=== PATIENT | female | born 1975 | race Caucasian/White ===

== ENCOUNTER 2021-01-21 19:51 | Emergency (ER) | payer MEDICAID ==
[~2021-01-21] VITALS: Ht 160 cm; Wt 127.3 kg
[2021-01-21] MEDS ORDERED: METF-960 PO (20:23)
[2021-01-21] MEDS ORDERED: GLIP10TA9 PO (20:25)
[2021-01-21] MEDS ORDERED: ACETAMINOPHEN 500 MG TABLET PO ONE (20:30)
[2021-01-21 21:06] LABS: COVID AG,FIA SOURCE NASOPHARYNGEAL
[2021-01-21 23:00] VITALS: BP 116/59
== END 2021-01-21 23:51 | disposition home or self-care (01) ==
LOC: EMS 19:54
DX: U07.1 COVID-19 (principal); E11.9 Type 2 diabetes mellitus without complications; Z88.0 Allergy status to penicillin; Z79.84 Long term (current) use of oral hypoglycemic drugs; Z79.899 Other long term (current) drug therapy
CPT/HCPCS: 99283

== ENCOUNTER 2021-03-16 20:16 | Emergency (ER) | payer MEDICAID ==
[~2021-03-16] VITALS: Ht 162.6 cm; Wt 95.5 kg
[~2021-03-16 20:16] MED LIST: GLIP10TA9 PO; METF-1211 PO
[2021-03-16 20:36] LABS: GLUCOSE,POINT OF CARE 383 MG/DL (70-110)
[2021-03-16 22:05] VITALS: BP 124/64
== END 2021-03-16 22:21 | disposition home or self-care (01) ==
LOC: EMS 20:18
DX: L73.9 Follicular disorder, unspecified (principal); E11.9 Type 2 diabetes mellitus without complications; Z88.0 Allergy status to penicillin; Z79.84 Long term (current) use of oral hypoglycemic drugs; Z79.899 Other long term (current) drug therapy
CPT/HCPCS: 82962; 99283

== ENCOUNTER 2021-08-01 18:32 | Emergency (ER) | payer MEDICAID ==
[~2021-08-01] VITALS: Ht 157.5 cm; Wt 92.3 kg
[2021-08-01 18:37] VITALS: BP 120/96
[2021-08-01] MEDS ORDERED: ERYT3.5O8 OS (19:48)
== END 2021-08-01 20:10 | disposition home or self-care (01) ==
LOC: EMS 18:32
DX: H00.025 Hordeolum internum left lower eyelid (principal); E11.9 Type 2 diabetes mellitus without complications; Z90.49 Acquired absence of other specified parts of digestive tract; Z88.0 Allergy status to penicillin
CPT/HCPCS: 99283; Z7502

== ENCOUNTER 2021-09-30 17:59 | Emergency (ER) | payer MEDICAID ==
[~2021-09-30] VITALS: Ht 154.9 cm; Wt 100.0 kg
[~2021-09-30 17:59] MED LIST changes: +ERYT3.5O8 OS
[2021-09-30] MEDS ORDERED: SODIUM CHLORIDE 0.9% 1,000 ML IV ONE (19:30)
[2021-09-30] MEDS ORDERED: ACETAMINOPHEN 500 MG TABLET PO ONE (19:30)
[2021-09-30 20:05] LABS: ANION GAP 7 mmol/L (8-16); CALCIUM, TOTAL 8.7 mg/dL (8.8-10.5); CARBON DIOXIDE 27 mmol/L (22-29); CHLORIDE 97 mmol/L (98-107); CREATININE 0.79 mg/dL (0.60-1.30); POTASSIUM 3.7 mmol/L (3.5-5.1); SODIUM SERUM 131 mmol/L (136-145); UREA NITROGEN, BLOOD 14 mg/dL (7-18)
[2021-09-30 20:07] LABS: GLOMERULAR FILTR. RATE CALC > 60 mL/min (>60); GLUCOSE,RANDOM 416 mg/dL (70-110)
[2021-09-30] MEDS ORDERED: INSULIN REGULAR, HUMAN 100 UNITS/ML IVP ONE (20:15)
[2021-09-30] MEDS ORDERED: IBUP-2070 PO (21:25)
[2021-09-30 21:36] LABS: GLUCOMETER DEV NAME(LOC) ERT.5; GLUCOSE,POINT OF CARE 139 MG/DL (70-110)
[2021-09-30 21:49] VITALS: BP 107/69
== END 2021-09-30 22:15 | disposition home or self-care (01) ==
LOC: EMS 18:01
DX: S93.601A Unspecified sprain of right foot, initial encounter (principal); E11.65 Type 2 diabetes mellitus with hyperglycemia; Z88.0 Allergy status to penicillin; Z79.899 Other long term (current) drug therapy; X50.1XXA Overexertion from prolonged static or awkward postures, initial encounter; Y93.89 Activity, other specified; Y92.89 Other specified places as the place of occurrence of the external cause; Y99.8 Other external cause status
CPT/HCPCS: 36415; 73630; 80048; 82948; 82962; 96361; 96374; 99284; J1815